=== PATIENT | female | born 1985 | race African-American/Black ===

== ENCOUNTER 2017-07-13 20:56 | Emergency (ER) | payer MEDICAID ==
[~2017-07-13] VITALS: Ht 157.5 cm; Wt 48.0 kg
[2017-07-13] MEDS ORDERED: PERCT PO (21:06)
[2017-07-13] MEDS ORDERED: BUSP5TAB20 PO (21:06)
[2017-07-13] MEDS ORDERED: OMEP20 PO (21:06)
[2017-07-13] MEDS ORDERED: QUET25TA PO (21:06)
[2017-07-13 21:24] LABS: BASOPHILS % (AUTO) 0.1 % (0.0-2.0); EOSINOPHILS % (AUTO) 0 % (1.0-6.0); HEMATOCRIT 41.4 % (36-46); HEMOGLOBIN 13.2 g/dL (12.0-16.0); LYMPHOCYTES # (AUTO) 0.4 K/uL (1.0-4.8); LYMPHOCYTES % (AUTO) 2.6 % (22.0-44.0); MEAN CORPUSCULAR HEMOGLOBIN 23.3 pg (26.0-34.0); MEAN CORPUSCULAR VOLUME 73 fL (80-100); MONOCYTES # (AUTO) 0.7 K/uL (0.1-1.0); MONOCYTES % (AUTO) 4.7 % (2.0-9.0); NEUTROPHILS # (AUTO) 14.6 K/uL (1.8-7.7); PLATELET COUNT (AUTO) 298 K/uL (150-450); RED BLOOD CELL COUNT(AUTO) 5.68 MIL/uL (4.00-5.20); RED CELL DISTRIBUTION WIDTH 15.5 % (11.5-14.5)
[2017-07-13 21:31] LABS: NEUTROPHILS % (AUTO) 92.6 % (40.0-70.0)
[2017-07-13 21:42] LABS: ANION GAP 16 mmol/L (8-16); CALCIUM, TOTAL 9.8 mg/dL (8.8-10.5); CARBON DIOXIDE 24 mmol/L (22-29); CHLORIDE 101 mmol/L (98-107); GLOMERULAR FILTR. RATE CALC > 60 mL/min (>60); GLUCOSE,RANDOM 157 mg/dL (70-110); POTASSIUM 3.5 mmol/L (3.5-5.1); SODIUM SERUM 141 mmol/L (136-145); UREA NITROGEN, BLOOD 14 mg/dL (7-18)
[2017-07-13 21:48] LABS: ALANINE AMINOTRANSFERASE 18 U/L (12-78); ALBUMIN 4.1 g/dL (3.4-5.0); ALKALINE PHOSPHATASE 67 U/L (46-116); ASPARTATE AMINOTRANSFERASE 29 U/L (15-37); BILIRUBIN,TOTAL 0.8 mg/dL (0.1-1.0); LIPASE 55 U/L (73-393); TOTAL PROTEIN, SERUM 8.8 g/dL (6.4-8.2)
[2017-07-13] MEDS ORDERED: METOCLOPRAMIDE HCL 5 MG/ML 2 ML VIAL IVP ONE (22:00)
[2017-07-13] MEDS ORDERED: LORazepam 2 MG/ML VIAL IVP ONE (22:00)
[2017-07-13] MEDS ORDERED: SODIUM CHLORIDE 0.9% 1,000 ML IV ONE ×2 (22:00→23:15)
[2017-07-13] MEDS ORDERED: HYDROmorphone 2 MG/ML SYRINGE IVP ONE (22:00)
[2017-07-14 00:52] VITALS: BP 142/71
== END 2017-07-14 01:07 | disposition home or self-care (01) ==
LOC: EMS 20:59
DX: R10.9 Unspecified abdominal pain (principal); R11.10 Vomiting, unspecified; F41.9 Anxiety disorder, unspecified; F17.210 Nicotine dependence, cigarettes, uncomplicated
CPT/HCPCS: 80053; 83690; 84703; 85025; 96361; 96374; 96375; 99285; G0480; J1170; J2060; J2765; J7030 ×2

== ENCOUNTER 2025-03-27 08:18 | Emergency (ER) | payer MEDICAID ==
[~2025-03-27] VITALS: Ht 162.6 cm; Wt 63.6 kg
[~2025-03-27 08:18] MED LIST: BUSP5TAB20 PO; OMEP-148 PO; PERCT PO; QUET25TA PO
[2025-03-27 08:40] VITALS: TEMP 98.2
[2025-03-27 08:46] LABS: COVID AG,FIA SOURCE NASAL SWAB
[2025-03-27 09:05] LABS: INFLUENZA TYPE A NEGATIVE FOR TYPE A (NEGATIVE); INFLUENZA TYPE B NEGATIVE FOR TYPE B (NEGATIVE)
[2025-03-27 09:12] LABS: SARS-COV2 (COVID) ANTIGEN,FIA Positive (Negative)
[2025-03-27] MEDS: METHADONE HCL 10 MG TABLET PO ONE (09:37)
[2025-03-27 10:02] VITALS: BP 142/95; PULSE 68; RESP 18; O2SAT 100
== END 2025-03-27 10:12 | disposition home or self-care (01) ==
LOC: EMS 08:18
DX: U07.1 COVID-19 (principal); F31.9 Bipolar disorder, unspecified; F41.9 Anxiety disorder, unspecified; F17.210 Nicotine dependence, cigarettes, uncomplicated; Z79.899 Other long term (current) drug therapy
CPT/HCPCS: 87804; 99283

== ENCOUNTER 2025-04-02 04:39 | Inpatient (IN) | payer MEDICAID ==
[~2025-04-02] VITALS: Ht 162.6 cm; Wt 64.2 kg
[2025-04-02] MEDS: LORazepam 2 MG/ML VIAL IM ONE (06:32)
[2025-04-02 08:02] LABS: PLATELET COUNT (AUTO) 284 K/uL (150-450); RED BLOOD CELL COUNT(AUTO) 5.35 MIL/uL (4.00-5.20); RED CELL DISTRIBUTION WIDTH 15.9 % (11.5-14.5); WHITE BLOOD COUNT (AUTO) 4.2 K/uL (4.5-11.0)
[2025-04-02 08:16] LABS: SODIUM SERUM 141 mmol/L (136-145)
[2025-04-02 08:18] LABS: CREATININE 0.49 mg/dL (0.60-1.30); GLOMERULAR FILTR. RATE CALC > 60 mL/min (>60); GLUCOSE,RANDOM 105 mg/dL (70-110); UREA NITROGEN, BLOOD 5 mg/dL (7-18)
[2025-04-02 08:19] LABS: CALCIUM, TOTAL 8.8 mg/dL (8.8-10.5)
[2025-04-02 08:32] LABS: APPEARANCE,URINE HAZY (CLEAR); GLUCOSE, URINE (UA) NEGATIVE (NEGATIVE); LEUKOCYTE ESTERASE ,URINE NEGATIVE (NEGATIVE); NITRATE,URINE NEGATIVE (NEGATIVE); OCCULT BLOOD,URINE NEGATIVE (NEGATIVE); PH,URINE DRUG SCREEN 6.0 (5.0-8.0); SPECIFIC GRAVITIY, URINE 1.027 (1.003-1.030)
[2025-04-02 08:38] LABS: SQUAMOUS EPITHELIAL CELL,UR Moderate /LPF (None Seen)
[2025-04-02] MEDS: BUPRENORPHINE HCL/NALOXONE HCL 8-2 MG SUBLINGUAL TABLET SL ONE (08:58)
[2025-04-02 09:30] LABS: ALCOHOL, URINE DRUG SCREEN NEGATIVE (NEGATIVE); AMPHET/METH SCREEN,URINE NEGATIVE (NEGATIVE); BARBITURATE SCREEN, URINE NEGATIVE (NEGATIVE); CANNABINOID SCREEN,URINE POSITIVE (NEGATIVE); COCAINE SCREEN,URINE NEGATIVE (NEGATIVE); METHADONE SCREEN, URINE POSITIVE (NEGATIVE)
[2025-04-02] MEDS: LORazepam 2 MG/ML VIAL IVP ONE ×2 (09:53→13:03)
[2025-04-02] MEDS: SODIUM CHLORIDE 0.9% 1,000 ML IV ONE ×2 (10:21→14:10)
[2025-04-02 13:51] LABS: RBC MORPHOLOGY COMMENT ABNORMAL RBC MORPH
[2025-04-02] MEDS: PIPERACILLIN/TAZO 3.375 GM/D5W 50 ML IV ONE (14:34)
[2025-04-02] MEDS ORDERED: LORazepam 2 MG/ML VIAL IM PRN (15:45)
[2025-04-02] MEDS ORDERED: HYDROCODONE/ACETAMINOPHEN 5-325 MG TABLET PO PRN (15:45)
[2025-04-02] MEDS ORDERED: MORPHINE SULFATE 4 MG/ML VIAL IVP PRN (15:45)
[2025-04-02] MEDS ORDERED: ZOLPIDEM TARTRATE 5 MG TABLET PO PRN (15:45)
[2025-04-02] MEDS ORDERED: ACETAMINOPHEN 325 MG TABLET PO PRN (15:45)
[2025-04-02] MEDS ORDERED: ONDANSETRON HCL 4 MG/2 ML VIAL IVP PRN (15:45)
[2025-04-02] MEDS ORDERED: BISACODYL 10 MG RECTAL RECTAL SUPPOSITORY PR PRN (15:45)
[2025-04-02] MEDS ORDERED: MAGNESIUM HYDROXIDE SUSPENSION 30 ML UDCUP PO PRN (15:45)
[2025-04-02] MEDS: HEPARIN SODIUM,PORCINE 5,000 UNITS/ML VIAL SQ SCH (15:49)
[2025-04-02] MEDS: MAGNESIUM SULFATE 2 GM, MVI, ADULT NO.1 WITH VIT K 10 ML, THIAMINE 100 MG, FOLIC ACID 1... IV ONE (16:46)
[2025-04-02 19:30] VITALS: BP 115/105; PULSE 80; RESP 20; TEMP 98.9; O2SAT 100
[2025-04-02 21:00] VITALS: BP 113/102; PULSE 78; RESP 20; TEMP 98.8; O2SAT 100
[2025-04-02] MEDS: DOCUSATE SODIUM 100 MG CAPSULE PO SCH (21:00)
[2025-04-02 22:15] VITALS: BP 125/102; PULSE 82; RESP 20; TEMP 98.5; O2SAT 100
[2025-04-02 23:17] VITALS: BP 151/98; PULSE 78; RESP 20; TEMP 98.6; O2SAT 100
[2025-04-03 05:02] VITALS: BP 168/101; PULSE 81; RESP 18; TEMP 99.5; O2SAT 99
[2025-04-03 06:10] VITALS: BP 163/88; RESP 18; O2SAT 99
[2025-04-03 06:49] LABS: RED BLOOD CELL COUNT(AUTO) 6.05 MIL/uL (4.00-5.20); RED CELL DISTRIBUTION WIDTH 16.2 % (11.5-14.5); WHITE BLOOD COUNT (AUTO) 8.9 K/uL (4.5-11.0)
[2025-04-03 07:06] LABS: CALCIUM, TOTAL 9.5 mg/dL (8.8-10.5); CREATININE 0.40 mg/dL (0.60-1.30); GLOMERULAR FILTR. RATE CALC > 60 mL/min (>60); GLUCOSE,RANDOM 100 mg/dL (70-110); SODIUM SERUM 139 mmol/L (136-145); UREA NITROGEN, BLOOD 4 mg/dL (7-18)
[2025-04-03 07:14] LABS: BAND NEUTROPHILS % (MANUAL) 0 % (0-5)
[2025-04-03 07:32] LABS: EOSINOPHILS % (MANUAL) 1 % (1-6); LYMPHOCYTES % (MANUAL) 12 % (22-44); MONOCYTES % (MANUAL) 5 % (2-9); NUCLEATED RED BLOOD CELLS 1.0 % (0.0-0.0); SEGMENTED NEUTROPHILS % 82 % (40-70)
[2025-04-03 07:33] LABS: RBC MORPHOLOGY COMMENT ABNORMAL R
[2025-04-03 07:34] LABS: PLATELET COUNT (AUTO) 120 K/uL (150-450)
[2025-04-03 08:00] VITALS: BP 161/78; PULSE 85; RESP 16; TEMP 99; O2SAT 100
[2025-04-03 08:15] VITALS: BP 161/78; PULSE 85; RESP 16; TEMP 99; O2SAT 100
[2025-04-03] MEDS: PANTOPRAZOLE SODIUM 40 MG DR TABLET PO SCH (09:31)
== END 2025-04-03 11:15 | disposition left against medical advice (07) | DRG 52 ==
LOC: EMS 05:39 → EDH 10:14 → 5S 19:10
PROVIDERS: ADMIT Internal Medicine; ATTEND Internal Medicine
DX: G92.8 Other toxic encephalopathy (principal); F11.229 Opioid dependence with intoxication, unspecified; F41.9 Anxiety disorder, unspecified; K21.9 Gastro-esophageal reflux disease without esophagitis; F31.9 Bipolar disorder, unspecified; Z53.29 Procedure and treatment not carried out because of patient's decision for other reasons; Z79.899 Other long term (current) drug therapy; Z87.891 Personal history of nicotine dependence
CPT/HCPCS: 80048; 80307; 81001; 84703; 85025; 92610; 96361; 96365; 96366; 96367; 96372; 96375; 96376; 99291; G0480; J0360; J1200; J1630; J1644; J2060; J2543; J3411; J3475; J3490; J7030; 36415-L1; 36415-TC

== ENCOUNTER 2025-04-06 05:12 | Emergency (ER) | payer MEDICAID ==
[~2025-04-06] VITALS: Ht 162.6 cm; Wt 60.5 kg
[2025-04-06 05:21] VITALS: TEMP 98; O2SAT 99
[2025-04-06] MEDS: METHADONE HCL 10 MG TABLET PO ONE (07:28)
[2025-04-06 07:37] VITALS: BP 156/98; PULSE 67; RESP 18
== END 2025-04-06 07:50 | disposition home or self-care (01) ==
LOC: EMS 05:18
DX: F41.9 Anxiety disorder, unspecified (principal); F11.90 Opioid use, unspecified, uncomplicated; F17.210 Nicotine dependence, cigarettes, uncomplicated; F31.9 Bipolar disorder, unspecified
CPT/HCPCS: 99283